=== PATIENT | female | born 1985 | race Caucasian/White ===

== ENCOUNTER 2023-10-10 06:04 | Outpatient (RCR) | payer BC, SELFPAY | END 2023-10-10 23:59 | disposition home or self-care (01) | LOC: RPT 06:04 | PROVIDERS: ATTENDING PHYSICIAN Nurse Practitioner Family | DX: M62.08 Separation of muscle (nontraumatic), other site (principal); M62.81 Muscle weakness (generalized); Z73.6 Limitation of activities due to disability | CPT/HCPCS: 97162; 97530 ==

== ENCOUNTER 2023-11-07 10:01 | Outpatient (RCR) | payer BC, SELFPAY | END 2023-11-07 23:59 | disposition home or self-care (01) | LOC: RPT 10:01 | PROVIDERS: ATTENDING PHYSICIAN Nurse Practitioner Family | DX: M62.08 Separation of muscle (nontraumatic), other site (principal); M62.81 Muscle weakness (generalized); Z73.6 Limitation of activities due to disability | CPT/HCPCS: 97140; 97530 ==